=== PATIENT | female | born 1950 | race Caucasian/White ===

== ENCOUNTER 2017-05-30 17:10 | Emergency (ER) | payer OTHER ==
[~2017-05-30] VITALS: Ht 162.6 cm; Wt 106.1 kg
[~2017-05-30 17:10] MED LIST: ACET325; CYCL10 PO; Hydrochlorothia25 MG PO; MORP30; NAPR500 PO; OXYACE5T PO; PROC10 PO; PROM25S PR; RXPROM25S PR; ST JOHNS WART
[2017-05-30 18:06] LABS: Influenza A Positive (NEGATIVE); Influenza B Negative (NEGATIVE)
[2017-05-30 18:23] LABS: BASOPHILS ABSOLUTE AUTO 0.05 K/mm3 (0.00-0.23); BASOPHILS PERCENT AUTO 1 % (0-2); EOSINOPHILS ABSOLUTE AUTO 0.01 K/mm3 (0.00-0.68); EOSINOPHILS PERCENT AUTO 0 % (0-6); Hematocrit 44.5 % (33.0-51.0); IMMATURE GRAN ABSOLUTE AUTO 0.01 K/mm3 (0.00-0.10); IMMATURE GRAN PERCENT AUTO 0 % (0-1); LYMPHOCYTES ABSOLUTE AUTO 0.56 K/mm3 (0.84-5.20); LYMPHOCYTES PERCENT AUTO 13 % (21-46); MONOCYTES ABSOLUTE AUTO 0.56 K/mm3 (0.16-1.47); MONOCYTES PERCENT AUTO 13 % (4-13); Mean Corpuscular HGB 32.5 pg (26.0-34.0); Mean Corpuscular Volume 90 fL (80-100); Mean Platelet Volume 10.5 fL (9.1-12.4); NEUTROPHILS ABSOLUTE AUTO 3.08 K/mm3 (1.96-9.15); NEUTROPHILS PERCENT AUTO 72 % (41-73); Platelet Count 191 K/mm3 (150-400); RDW Coefficient Variation 13.2 % (11.7-14.2); RDW Standard Deviation 43.2 fL (35.1-46.3); Red Blood Cell Count 4.93 M/mm3 (3.80-5.20); White Blood Cell Count 4.27 K/mm3 (4.00-11.30)
[2017-05-30 18:45] LABS: Alanine Aminotransfer (ALT/SGP 27 U/L (12-78); Albumin, Blood 3.7 g/dL (3.4-5.0); Alk Phos 100 U/L (50-136); Anion Gap 9 mmol/L (6-16); Aspartate Aminotrans (AST/SGOT 28 U/L (12-37); Bilirubin, Total 0.5 mg/dL (0.1-1.0); Blood Urea Nitrogen 7 mg/dL (8-24); Bun/Creatinine Ratio 11.2 (12.0-20.0); CO2, Blood 21 mmol/L (21-32); Chloride, Blood 107 mmol/L (98-108); Creatinine, Blood 0.62 mg/dL (0.40-1.00); Globulin, Blood 3.8 g/dL (2.2-4.0); Glomerular Filtration Rate >60 (60-); Glucose, Blood 108 mg/dL (70-99); Potassium, Blood 3.8 mmol/L (3.5-5.5); Sodium, Blood 137 mmol/L (136-145); Total Protein, Blood 7.5 g/dL (6.4-8.2)
[2017-05-30] MEDS ORDERED: Zofran Odt4 MG PO (23:13)
[2017-05-30] MEDS ORDERED: ALBU90OI INH (23:13)
[2017-05-30] MEDS ORDERED: Prednisone20 MG PO (23:13)
== END 2017-05-30 23:40 | disposition home or self-care (01) ==
LOC: ER 17:10
PROVIDERS: Emergency Medicine; Physician Assistant
DX: J10.1 Influenza due to other identified influenza virus with other respiratory manifestations (principal); Z88.8 Allergy status to other drugs, medicaments and biological substances; Z90.710 Acquired absence of both cervix and uterus; Z90.49 Acquired absence of other specified parts of digestive tract; Z90.89 Acquired absence of other organs; Z96.651 Presence of right artificial knee joint; Z87.891 Personal history of nicotine dependence
CPT/HCPCS: 36415; 71046; 80053; 85025; 87804; 93005; 93010; 94640; 96361; 96374; 96375; 99284; J1885; J2930; J7030